=== PATIENT | male | born 1985 | race Caucasian/White ===

== ENCOUNTER 2017-08-16 | Emergency (ER) | payer SELFPAY ==
[~2017-08-16] VITALS: Ht 177.8 cm; Wt 71.0 kg
[2017-08-16] MEDS ORDERED: TETANUS, DIPHTHERIA, PERTUSSIS VAC/PF 0.5ML (>7YR OLD) IM ONE (03:00)
[2017-08-16 03:44] VITALS: BP 120/79
== END 2017-08-16 03:50 | disposition home or self-care (01) ==
LOC: ER
DX: S60.041A Contusion of right ring finger without damage to nail, initial encounter (principal); Z87.891 Personal history of nicotine dependence; X58.XXXA Exposure to other specified factors, initial encounter; Y93.89 Activity, other specified; Y92.89 Other specified places as the place of occurrence of the external cause; Y99.8 Other external cause status
CPT/HCPCS: 90471; 90715; 99283; Z7610